=== PATIENT | female | born 1940 | race Caucasian/White ===

== ENCOUNTER → 2016-09-30 | Outpatient (CLI) | payer OTHER ==
[~2016-09-30] MED LIST: ASPIR 8181 MG PO; LOPRESSOR100 M1 PO; LOSARTAN-HCTZ1 EACH PO; VITAMIN D2000 UNIT PO
== END ==
LOC: RAD 09-29 07:13
DX: R92.8 Other abnormal and inconclusive findings on diagnostic imaging of breast (principal)

== ENCOUNTER → 2016-12-16 | Outpatient (CLI) | payer OTHER | LOC: CAT 12-15 09:28 | DX: J18.9 Pneumonia, unspecified organism (principal) ==

== ENCOUNTER → 2017-06-16 | Outpatient (CLI) | payer OTHER | LOC: RAD 11:25 | DX: R92.8 Other abnormal and inconclusive findings on diagnostic imaging of breast (principal) ==

== ENCOUNTER → 2017-06-27 | Outpatient (CLI) | payer OTHER ==
[2017-06-27 10:44] LABS: HEMATOCRIT 41.6 % (37.0-47.0); MCHC 33.6 g/dL (28.0-37.0); MCV 92.4 fL (80.0-100.0); PLATELET COUNT 239 thou/uL (150-400); WBC 5.8 thou/uL (4.0-11.0)
[2017-06-27 10:55] LABS: CALCIUM 9.4 mg/dL (8.5-10.1); CREATININE 0.7 mg/dL (0.6-1.0); POTASSIUM 3.8 mmol/L (3.5-5.1)
[2017-06-27 11:07] LABS: ABSOLUTE NEUTROPHILS 3.2 thou/uL (1.4-8.2)
== END ==
LOC: LABMALL 10:20
PROVIDERS: Nurse Practitioner
DX: K57.30 Diverticulosis of large intestine without perforation or abscess without bleeding (principal)

== ENCOUNTER → 2018-07-19 | Outpatient (CLI) | payer OTHER ==
[2018-07-19 14:29] LABS: CALCIUM 8.9 mg/dL (8.5-10.1); CREATININE 0.7 mg/dL (0.6-1.0); POTASSIUM 3.8 mmol/L (3.5-5.1)
== END ==
LOC: LAB 13:51
PROVIDERS: Nurse Practitioner
DX: K57.32 Diverticulitis of large intestine without perforation or abscess without bleeding (principal); K76.89 Other specified diseases of liver; J98.11 Atelectasis; R91.1 Solitary pulmonary nodule; N83.201 Unspecified ovarian cyst, right side; N83.202 Unspecified ovarian cyst, left side; M47.816 Spondylosis without myelopathy or radiculopathy, lumbar region; M41.86 Other forms of scoliosis, lumbar region

== ENCOUNTER → 2018-07-31 | Outpatient (CLI) | payer OTHER | LOC: RAD 07-19 01:18 | DX: Z12.31 Encounter for screening mammogram for malignant neoplasm of breast (principal) ==

== ENCOUNTER → 2018-08-09 | Outpatient (CLI) | payer OTHER ==
[2018-08-09 09:12] LABS: CREATININE 0.8 mg/dL (0.6-1.0)
== END ==
LOC: CAT 08:23
PROVIDERS: Family Medicine
DX: K57.92 Diverticulitis of intestine, part unspecified, without perforation or abscess without bleeding (principal); K76.89 Other specified diseases of liver; Z88.8 Allergy status to other drugs, medicaments and biological substances

== ENCOUNTER → 2020-10-05 | Outpatient (CLI) | payer OTHER | LOC: BC 09:06 | DX: Z12.31 Encounter for screening mammogram for malignant neoplasm of breast (principal) ==